=== PATIENT | female | born 1970 | race Caucasian/White ===

== ENCOUNTER 2017-07-17 15:05 | Outpatient (CLI) | payer OTHER | END 2017-07-17 15:06 | disposition home or self-care (01) | LOC: BICMAMMO 15:05 | PROVIDERS: ATTEND Obstetrics & Gynecology | DX: Z12.31 Encounter for screening mammogram for malignant neoplasm of breast (principal); Z80.3 Family history of malignant neoplasm of breast | CPT/HCPCS: 77063; 77067 ==

== ENCOUNTER 2019-04-17 16:38 | Outpatient (CLI) | payer OTHER ==
[~2019-04-17 16:38] MED LIST: Iopamidol 370 76% 50 ML VIAL FS ONE; Iopamidol-370 76% 500 ML 1 ML ONE
--- NOTE | 2019-04-17 20:28 | CT ---
CT OF THE ABDOMEN AND PELVIS WITH IV CONTRAST: 04/17/19 INDICATION: History of lower abdominal pain, diarrhea and right lower quadrant abdominal pain. COMPARISON: None. FINDINGS: Lung bases are clear. The gallbladder is surgically absent. No focal hepatic lesion is evident. The pancreas, spleen and adrenal glands are normal appearing. Left kidney is normal appearing. Right kidney there is a 4.7 mm nonobstructing calculus within the superior pole. No hydronephrosis is evide nt. No free fluid or enlarged lymph nodes are evident. There is a normal appendix in the right lower quadrant. There is a bilobed cyst within the left adnexa. There is a more simple appearing cyst within the righ t adnexa. There is mild free fluid in the pelvis. Bladder is normal appearing. The colon demonstrates no abnormal wall thickening. Small bowel is of normal caliber. There is a full ness at the level of the vagina which is nonspecific. No definite acute osseous abnormality is evident. There is a small bone island within the right aspec t of L5. IMPRESSION: 1. No definite CT explanation for the patient's lower abdominal pain. There is nonspecific fulln ess at the level of the vagina which may be related to soft tissue coaptation. Recommend correlation with a gynecological examination. 2. Bilateral hypodense lesion involving the adnexa are suspicious for follicular cysts. A pelvi c ultrasound follow-up may be helpful for further characterization. 3. Normal appendix in the right lower quadrant. 4. Right nephrolithiasis. 5. Cholecystectomy. POS: PAN
== END 2019-04-17 16:39 | disposition home or self-care (01) ==
LOC: CT 16:38
PROVIDERS: ATTEND Internal Medicine
DX: R10.31 Right lower quadrant pain (principal); R19.7 Diarrhea, unspecified; R10.30 Lower abdominal pain, unspecified; N20.0 Calculus of kidney; N83.8 Other noninflammatory disorders of ovary, fallopian tube and broad ligament; Z90.49 Acquired absence of other specified parts of digestive tract
CPT/HCPCS: 74177; Q9967

== ENCOUNTER 2020-02-16 06:05 | Day surgery (SDC) | payer OTHER ==
[2020-02-11 18:35] LABS: Hemoglobin 12.3 g/dL (12.0-16.0); Mean Corpuscular HGB CONC 33.2 G/DL (32.0-36.0); Mean Corpuscular Hemoglobin 29.6 PG (27.0-33.0); Mean Corpuscular Volume 89.4 fl (80.0-100.0); Mean Platelet Volume 10.7 fl (7.4-10.4); Platelet Count 239 10x3/uL (130-400); RBC Distribution Width 12.8 % (11.5-14.5); Red Blood Cell (RBC) Count 4.15 10x6/uL (3.90-5.20); White Blood Cell (WBC) Count 6.1 10x3/uL (4.5-11.0)
[2020-02-11 18:41] LABS: BHCG - Serum Negative (NEGATIVE); Pregs Control Background? CLEAR/WHITE (CLR/WHITE); Pregs Control Bar Appear? YES (CONTROL BAR)
[2020-02-12 09:35] LABS: SARS-CoV-2 MS2 Positive; SARS-CoV-2 N Gene Negative; SARS-CoV-2 S Gene Negative; SARS-CoV-2 by NAA Not Detected (NotDetected); SARS-CoV-2 orf1ab Negative
[2020-02-13 14:26] VITALS: BMI 19.8
[2020-02-16] MEDS ORDERED: Midazolam HCl 2 mg/2 ml Vial ONE (06:12)
[2020-02-16] MEDS ORDERED: Lidocaine 2% Jelly 5 ML TUBE ONE (06:12)
[2020-02-16] MEDS ORDERED: Fentanyl 100 MCG/2 ML VIAL ONE (06:12)
[2020-02-16] MEDS ORDERED: HYDROmorphone 0.5 MG/0.5 ML SYRINGE ONE (06:12)
[2020-02-16] MEDS ORDERED: Famotidine/PF 20 mg/2ml Vial ONE (06:37)
[2020-02-16] MEDS ORDERED: CeleCOXIB 100 MG CAP ONE (06:37)
[2020-02-16] MEDS ORDERED: Gabapentin 300 MG CAP ONE (06:37)
[2020-02-16] MEDS ORDERED: Bupivacaine PF 0.5% 30 ML VIAL ONE (07:03)
[2020-02-16] MEDS ORDERED: Lidocaine 1% w/Epinephrine 1:100K 20 ML VIAL ONE (07:03)
[2020-02-16] MEDS ORDERED: Bicitra 30 ML UDCUP ONE (07:11)
[2020-02-16] MEDS ORDERED: Ropivacaine 0.2% 550 ML 750 ML NERVE BLCK SCH (08:00)
[2020-02-16] MEDS ORDERED: Ropivacaine HCl/PF 750 ML in Premix Bag 1 BAG NERVE BLCK SCH (08:15)
[2020-02-16] MEDS ORDERED: Ondansetron HCl/PF 4 MG/2 ML Vial IVP PRN (08:37)
[2020-02-16] MEDS ORDERED: HYDROmorphone 2 MG/ML VIAL SLOW IVP PRN (08:37)
[2020-02-16] MEDS ORDERED: Promethazine HCl 25 MG/ML VIAL IM PRN (08:37)
[2020-02-16] MEDS ORDERED: Meperidine HCl/PF 25 MG/ML VIAL SLOW IVP PRN (08:37)
[2020-02-16] MEDS ORDERED: Promethazine HCl 25 MG/ML VIAL SLOW IVP PRN (08:37)
[2020-02-16] MEDS ORDERED: Ketorolac Tromethamine 30 MG/ML VIAL IVP PRN (08:37)
[2020-02-16] MEDS ORDERED: SUGAMMADEX SODIUM 200 MG/2 ML VIAL ONE (08:58)
--- NOTE | 2020-02-16 10:28 | OP ---
DATE OF PROCEDURE: 02/16/2020 PREOPERATIVE DIAGNOSIS: Menorrhagia, suspected adenomyosis. POSTOPERATIVE DIAGNOSIS: Menorrhagia, suspected adenomyosis. PROCEDURE PERFORMED: Robotic-assisted total laparoscopic hysterectomy with bilateral salpingectomy. TOOL LATHE OPERATOR: Laura Fox PA-C. ANESTHESIA: GETA. COMPLICATIONS: None. ESTIMATED BLOOD LOSS: Less than 50 mL. OPERATIVE FINDINGS: 1. Homogeneously enlarged uterus with normal fallopian tubes and normal-appearing ovaries. 2. Surgical sites hemostatic. 3. ON-Q catheter placed at the end of the procedure with a sterile dressing. PROCEDURE IN DETAIL: The patient was taken back to the OR with IV fluids running. When she was in the OR, general anesthesia was obtained. The patient was then placed in low dorsal lithotomy position with her arms tucked at her side. The abdomen and vagina were prepped and draped in normal fashion for gynecologic laparoscopy. Surgeons were gowned and gloved. A Galvez catheter was placed into the bladder and drained approximately 100 mL of urine. A Senia syringe was attached for bladder manipulation during the case. An operative speculum was placed in the vagina. The anterior lip was grasped with a single-tooth tenaculum and the cervix was serially dilated. The uterus sounded to 9 cm. A [employer] manipulator was assembled with an 8 cm tip and a 4-cm cup and placed into the uterus and vagina in routine fashion. The surgeon's gloves were then changed. Attention was turned to the laparoscopic portion of the case. Beginning at the supraumbilical fold, local anesthesia was injected underneath the skin. A 12 mm skin incision was made with a scalpel. A Veress needle was gently placed through the skin incision into the peritoneal cavity and the abdomen was insufflated without difficulty. Next, the Veress needle was removed and a 12 mm trocar was placed through the distended abdomen. The laparoscope was then placed through the port and the patient was placed in Trendelenburg position with the above findings noted. Next, under direct visualization, the left and right lower quadrant 8-mm ports and the right upper quadrant 11 mm ports were placed and the robot was docked at the patient's bedside and the instruments were placed through the trocars under direct visualization. With monopolar scissors and a bipolar fenestrated grasper, the procedure began on the patient's left side. The left fallopian tube was identified, grasped, elevated. It was then cauterized and transected and removed from the operative field. The utero-ovarian ligament on the patient's left side was cauterized and transected. The round ligament was then cauterized, transected, and divided into anterior and posterior leaves. The ligament was dissected down towards the level of the uterine artery, which was then skeletonized. After the uterine artery was skeletonized, the bladder reflection was dissected anteriorly away from the planned colpotomy site. The cervicovesical fascia was dissected down in layers further displacing the bladder from the planned colpotomy site. While this was done, the bladder was backfilled to ensure bladder anatomy was protected and away from the planned colpotomy site. The bladder was then drained. After the uterine arteries were cauterized and transected on the patient's left side, attention was turned to the right side. In similar fashion, the right fallopian tube was removed. The utero-ovarian and round ligaments on the patient's right side were cauterized and transected. The round ligament was dissected down anteriorly and posteriorly, skeletonizing the uterine artery. The bladder flap dissection was completed. The uterine artery on the patient's right side was cauterized, and transected. The colpotomy was then performed with monopolar scissors circumferentially with palpation of the [employer] manipulator cup. After the specimen was dissected, the uterus was removed from the vagina. The vaginal cuff was copiously irrigated and any small areas of bleeding were controlled with bipolar cautery. Stratafix suture was introduced into the abdomen under direct visualization. The vaginal cuff was closed in a running fashion and in 2 layers. After the vaginal cuff closure was complete, the needle was removed. The counts were correct. The pelvis, areas of dissection and vaginal cuff were copiously irrigated and suctioned dry. The pressure was dropped down to 5 mmHg with no evidence of bleeding noted. With no evidence of bleeding noted, the ON-Q catheter tip was introduced through the anterior abdominal wall under direct visualization, and the catheter was directed down into the pelvis and primed. A sterile dressing was applied over the skin at the site of the ON-Q catheter tip placement. All ports were removed and gas was released from the abdomen. The supraumbilical fascia was closed with Vicryl suture and all 4 skin incisions were closed with Monocryl suture and dressed with Dermabond dressing. At the end of the case, the vagina and vaginal cuff were inspected with no bleeding noted. The patient was cleaned, dried, taken out of lithotomy position, extubated, and transferred to the recovery room in good condition. Job ID: [id number]
[2020-02-16] MEDS ORDERED: Lidocaine 1% PF 5 ML VIAL ONE (10:51)
[2020-02-16] MEDS ORDERED: PROPOFOL 200 MG/20 ML VIAL ONE (10:51)
[2020-02-16] MEDS ORDERED: ePHEDrine 50 MG/ML VIAL ONE (10:51)
[2020-02-16] MEDS ORDERED: Dexamethasone 20 MG/5 ML VIAL ONE (10:51)
[2020-02-16] MEDS ORDERED: Rocuronium Bromide 10 MG/ML (10ML VIAL) ONE (10:51)
[2020-02-16] MEDS ORDERED: Glycopyrrolate 0.2 MG/ML 5 ML SYRINGE ONE (10:51)
[2020-02-16] MEDS ORDERED: Ondansetron PF 4 MG/2 ML Vial ONE ×2 (10:51→13:16)
[2020-02-16] MEDS ORDERED: PHENYLEPHRINE-NS 100 MCG/ML 10 ML SYRINGE ONE (10:51)
== END 2020-02-16 17:20 | disposition home or self-care (01) ==
LOC: SDC 06:05
PROVIDERS: ATTEND Obstetrics & Gynecology
PROC: 0UT94ZZ Resection of Uterus, Percutaneous Endoscopic Approach (ICD-10-PCS; principal; 2020-02-16)
PROC: 0UT74ZZ Resection of Bilateral Fallopian Tubes, Percutaneous Endoscopic Approach (ICD-10-PCS; principal; 2020-02-16)
DX: N80.0 Endometriosis of uterus (principal); N73.6 Female pelvic peritoneal adhesions (postinfective); K58.9 Irritable bowel syndrome, unspecified; Z79.899 Other long term (current) drug therapy; Z88.2 Allergy status to sulfonamides
CPT/HCPCS: 36415; 84703; 85027; 86850; 86900; 86901; 87635; 88307; J0690; J1100; J1170; J2250; J2405; J2704; J2795; J3010; J3490; S0020; S0028; U0003